=== PATIENT | female | born 1955 | race Caucasian/White ===

== ENCOUNTER 2024-03-30 08:44 | Emergency (ER) | payer MEDICARE, OTHER, SELFPAY ==
[2024-03-30 08:46] VITALS: BP 155/102
--- NOTE | 2024-03-30 09:29 | ED.GENMED ---
History of Present Illness
General
Chief Complaint: Musculo-Skeletal Complaint
Time Seen by Provider: 03/30/24 09:11
History of Present Illness
History of Present Illness:
Patient is a 68-year-old woman with history of A-fib on Coumadin, hypothyroidism, pacemaker presenting to the emergency department with thigh pain. Patient states that she had a bunionectomy in January. She was using a walker that she stopped using a
few weeks ago. She states that she is putting more weight on her left thigh with ambulation secondary to the discomfort at the bunionectomy site.. She believes a she has been using the leg more in the past few days. She noticed that last week it
started bothering her a little bit. She did try taking some ibuprofen. Yesterday she was walking and her leg gave out so she almost fell though her brother caught her. She did not hit her head or lose consciousness. She did not hear a pop.
Since then she has been having worsening pain over the lateral left thigh that is worse with extension and improves with flexion. No fevers or chills. No numbness tingling. No leg discoloration.
Phy Exam
Physical Exam
Physical Exam:
GENERAL: in no acute distress
HEENT: normocephalic, extraocular movements intact, moist oral mucosa
NECK: normal inspection
RESPIRATORY: no respiratory distress, clear to auscultation bilaterally
CARDIOVASCULAR: regular rate and rhythm
ABDOMEN/: soft, non-distended, non-tender to palpation, no rebound or guarding
EXTREMITIES: Left lower extremity with tenderness over the lateral aspect of the leg along the vastus lateralis, no overlying skin changes, full range of flexion at the hip and flexion at the knee. Difficulty with extension secondary to pain.
Distal pulses intact. Normal sensation
NEUROLOGIC: awake and alert, moves all extremities
SKIN: warm
Course
Orders/Labs/Results
Orders:
Orders
03/30/24 09:27
CR Femur - Left Min 2 Vw Urgent
Comment:
Reason For Exam: left femur pain
03/30/24 09:28
Acetaminophen [Tylenol] 1,000 mg PO NOW STA
03/30/24 09:30
Lidocaine [Lidocaine 4% Patch] 1 patch TOPICAL DAILY
Apply Lidocaine patch(s) to:: left thigh
03/30/24 10:03
Basic Metabolic Panel Urgent
Complete Blood Count/With Diff Urgent
Total CK [Creatine Phosphokinase] Urgent
Abnormal Lab Results
03/30/24
10:03
RBC 3.84 L 10^6/uL
(4.20-5.40)
Hgb 11.0 L g/dL
(12.0-16.0)
Hct 33.2 L %
(37.0-47.0)
Lymphocytes % 16.9 L %
(20.5-51.1)
BUN 20 H mg/dl
(7-17)
Glucose 121 H mg/dl
(70-99)
03/30/24 10:03
03/30/24 10:03
Vital Signs
Initial and Last Documented VS:
Initial Vital Signs
Temp Pulse Resp BP Pulse Ox
98.4 F 93 18 155/102 98
03/30/24 08:46 03/30/24 08:46 03/30/24 08:46 03/30/24 08:46 03/30/24 08:46
Last Documented Vital Signs
Temp Pulse Resp BP Pulse Ox
98.4 F 93 18 133/76 98
03/30/24 08:46 03/30/24 08:46 03/30/24 08:46 03/30/24 11:33 03/30/24 08:46
MDM/Problems Addressed
Differential Diagnosis Includes:
Patient is a 68-year-old woman presenting to the emergency department with left thigh pain that acutely worsened yesterday. Vitals are unremarkable and exam shows tenderness over the left lateral thigh and difficulty with extension of the hip
secondary to pain. Likely quadriceps tendon strain. Doubt rupture given she is able to fully flex. Considered rhabdo or electrolyte derangement. She could have an avulsion fracture. Will check blood work including CK and electrolytes. Will
obtain x-ray. Will pain control. At this time patient would prefer to stay away from opioids.
*Critical Care Note
Total Time (30-74mins, 75-104mins- exclusive of procedures): Not Applicable
Update Note
Update Note:
On reevaluation patient states that the pain has slightly improved after the lidocaine patch. She was able to ambulate with a walker. X-ray per my interpretation without any obvious fracture. Blood work reassuring. After shared decision making
we will discharge patient home with orthopedic follow-up.
ED Attending Note
-
Portions of this chart may have been created with voice recognition software.� Occasional wrong word or��sound alike� substitutions may have occurred due to the inherent limitations of voice recognition software.
Discharge Plan
Departure
Patient Disposition: Home (Routine Discharge)
Date of Disposition: 03/30/24
Time of Disposition: 12:12
Patient with high blood pressure during this ER visit?: No
Discharge Problem:
Leg pain
Instructions: Muscle Strain (DC)
Referrals:
NONE,* [Family Provider] -
Activity Restrictions/Additional Instructions:
You were seen in the Emergency Department today for leg pain. While you were here we performed blood work, which was reassuring. Please continue to use the walker as well as Salonpas. Please call the [facility] to schedule a follow-up
appointment.
We would like for you to follow up with your primary care physician for further evaluation. If you experience fever, worsening of your symptoms, or develop any other new or concerning symptoms, please return to the Emergency Department immediately.
Please see the attached sheet for additional information.
Interventions
Interventions:
*Risk Screen - Suicide Last Done: 03/30/24 08:50
*General Assessment Last Done: 03/30/24 08:50
*Neglect/Abuse Screening Last Done: 03/30/24 08:50
ED-Musculoskeletal Assessment Last Done: 03/30/24 10:59
ED- Neurological Assessment Last Done: 03/30/24 10:59
ED-Skin Assessment Last Done: 03/30/24 11:00
Discharge Date and Time
Print Language: BELIZEAN
[2024-03-30] MEDS: LIDOCAINE 4% PATCH 1 PATCH TOPICAL (09:35)
[2024-03-30] MEDS: TYLENOL 1000 MG PO (09:35)
[2024-03-30 10:18] LABS: % Basophils 0.4 % (0-2); % Eosinophils 1.6 % (0-6); % Immature Granulocytes 0.3 % (0-0.5); % Lymphocytes 16.9 % (20.5-51.1); % Monocytes 8.5 % (1.7-9.3); % Neutrophils 72.3 % (42.2-75.2); Absolute Eosinophils 0.1 10^3/uL (0-0.7); Absolute Lymphocytes 1.2 10^3/uL (1.2-3.4); Absolute Monocytes 0.6 10^3/uL (0.1-0.6); Hematocrit 33.2 % (37.0-47.0); Mean Corp Hgb Conc. 33.1 g/dL (33.0-37.0); Mean Corpuscular Hgb 28.6 pg (27.0-31.0); Mean Corpuscular Volume 86.5 fL (81.0-99.0); Mean Platelet Volume 9.5 fL (7.4-10.4); Nucleated Red Blood Cells % 0 %; Platelet Count 343 10^3/uL (130-400); Red Blood Cell Count 3.84 10^6/uL (4.20-5.40); Red Cell Dist. Width 14.4 % (11.5-14.5); White Blood Cell Count 6.9 10^3/uL (4.8-10.8)
[2024-03-30 10:33] LABS: Blood Urea Nitrogen 20 mg/dl (7-17); Calcium 9.8 mg/dl (8.4-10.2); Carbon Dioxide 26 mmol/L (22-30); Chloride 104 mmol/L (98-107); Creatine Phosphokinase 63 U/L (30-135); Glucose 121 mg/dl (70-99); Potassium 5.1 mmol/L (3.5-5.1); Sodium 141 mmol/L (135-145); eGFR > 60.00
[2024-03-30 11:33] VITALS: BP 133/76
== END 2024-03-30 12:27 | disposition home or self-care (01) ==
LOC: EMR 08:44
PROVIDERS: EMERGENCY PHYSICIAN Student in an Organized Health Care Education/Training Program
DX: M79.652 Pain in left thigh (principal); I48.91 Unspecified atrial fibrillation; Z79.01 Long term (current) use of anticoagulants; E03.9 Hypothyroidism, unspecified; Z95.0 Presence of cardiac pacemaker
CPT/HCPCS: 99284; 73552; 80048; 82550; 85025

== ENCOUNTER → 2024-05-12 15:15 | Outpatient (REF) | payer MEDICARE, OTHER, SELFPAY | LOC: RAD 15:15 | PROVIDERS: ATTENDING PHYSICIAN Pain Medicine Interventional Pain Medicine; FAMILY PHYSICIAN Internal Medicine | DX: M54.16 Radiculopathy, lumbar region (principal) | CPT/HCPCS: 72131 ==

== ENCOUNTER → 2024-05-19 10:37 | Outpatient (REF) | payer MEDICARE, OTHER, SELFPAY | LOC: EMG 10:37 | PROVIDERS: ATTENDING PHYSICIAN Pain Medicine Interventional Pain Medicine; FAMILY PHYSICIAN Internal Medicine | DX: M54.16 Radiculopathy, lumbar region (principal) | CPT/HCPCS: 95886; 95910 ==

== ENCOUNTER → 2024-06-05 14:27 | Outpatient (REF) | payer MEDICARE, OTHER, SELFPAY | LOC: HWRAD 14:27 | PROVIDERS: ATTENDING PHYSICIAN Internal Medicine | DX: N28.89 Other specified disorders of kidney and ureter (principal) | CPT/HCPCS: 76770 ==